=== PATIENT | male | born 1995 | race Caucasian/White ===

== ENCOUNTER 2017-12-11 16:23 | Emergency (ER) | payer BC ==
[~2017-12-11] VITALS: Ht 172.7 cm; Wt 68.0 kg
[2017-12-11 16:34] VITALS: BP_SYST 101
[2017-12-11 17:20] VITALS: BP_SYST 101
== END 2017-12-11 17:20 | disposition home or self-care (01) ==
LOC: SED 16:23
DX: S93.402A Sprain of unspecified ligament of left ankle, initial encounter (principal); X50.1XXA Overexertion from prolonged static or awkward postures, initial encounter; Y93.64 Activity, baseball; Y92.89 Other specified places as the place of occurrence of the external cause; Y99.8 Other external cause status
CPT/HCPCS: 99284